=== PATIENT | male | born 1955 | race Caucasian/White ===

== ENCOUNTER 2022-01-06 19:58 | Inpatient (IN) | payer MEDICARE, OTHER ==
[~2022-01-06] VITALS: Ht 170.2 cm; Wt 72.6 kg
[2022-01-06] MEDS ORDERED: NITROGLYCERIN PACKET 1 GM PACKET ONE (20:15)
[2022-01-06] MEDS ORDERED: NITROGLYCERIN PACKET 1 GM PACKET TD ONE (20:30)
[2022-01-06] MEDS ORDERED: ASPIRIN 325 MG TABLET PO ONE (20:30)
[2022-01-06 20:49] LABS: BASOPHILS # (AUTO) 0.1 K/uL (0.0-0.2); BASOPHILS % (AUTO) 0.9 % (0.0-2.0); HEMATOCRIT 41 % (39-51); LYMPHOCYTES # (AUTO) 1.8 K/uL (0.8-4.8); MEAN CORPUSCULAR HGB CONC 34 g/dl (31.0-36.0); MEAN CORPUSCULAR VOLUME 86 fL (80-96); MONOCYTES # (AUTO) 0.4 K/uL (0.1-1.30); MONOCYTES % (AUTO) 5.4 % (2.0-12.0); NEUTROPHILS # (AUTO) 4.5 K/uL (1.8-8.9); NEUTROPHILS % (AUTO) 63.7 % (43.0-81.0); PLATELET COUNT (AUTO) 276 K/uL (150-450); RED BLOOD CELL COUNT(AUTO) 4.74 MIL/uL (4.5-6.0); WHITE BLOOD COUNT (AUTO) 7.1 K/uL (4.3-11.0)
[2022-01-06 21:04] LABS: ALANINE AMINOTRANSFERASE 22 U/L (12-78); ALBUMIN 3.5 g/dL (3.4-5.0); ALKALINE PHOSPHATASE 65 U/L (46-116); ASPARTATE AMINOTRANSFERASE 13 U/L (15-37); BILIRUBIN,DIRECT 0.1 mg/dL (0.0-0.2); BILIRUBIN,TOTAL 0.4 mg/dL (0.2-1.0); CALCIUM, SERUM 8.5 mg/dL (8.5-10.1); CARBON DIOXIDE 28 mmol/L (21-32); CHLORIDE 101 mmol/L (98-107); CREATININE 1.1 mg/dL (0.6-1.3); GLUCOSE 216 mg/dL (74-106); POTASSIUM 3.3 mmol/L (3.5-5.1); SODIUM SERUM 137 mmol/L (136-145); UREA NITROGEN, BLOOD 16 mg/dL (7-18)
[2022-01-06] MEDS ORDERED: ACETAMINOPHEN 325 MG TABLET PO PRN (22:00)
[2022-01-06] MEDS ORDERED: ONDANSETRON HCL/PF 4 MG/2 ML VIAL IVP PRN (22:00)
[2022-01-06] MEDS ORDERED: MAGNESIUM HYDROXIDE 30 ML UDC PO PRN (22:00)
[2022-01-06] MEDS ORDERED: MAG HYDROX/AL HYDROX/SIMETH 30 ML UDC PO PRN ×2 (22:00)
[2022-01-06] MEDS ORDERED: POTASSIUM CHLORIDE 20 MEQ TAB.PRT.SR PO ONE (22:00)
[2022-01-06] MEDS ORDERED: MAG HYDROX/AL HYDROX/SIMETH 30 ML UDC ONE (22:00)
[2022-01-06] MEDS ORDERED: Z GUARD REMEDY 4 OZ OINT TP PRN (22:00)
[2022-01-06] MEDS ORDERED: ZOLPIDEM TARTRATE 5 MG TABLET PO PRN (22:00)
[2022-01-07] VITALS: BP 105/63
[2022-01-07] MEDS ORDERED: CEFTRIAXONE 1 G in IV D5W 50 ML IV SCH ×2
[2022-01-07 00:03] VITALS: BP 105/63
[2022-01-07] MEDS ORDERED: CEFTRIAXONE 1 G VIAL ONE (00:21)
[2022-01-07 04:00] VITALS: BP 98/64
[2022-01-07] MEDS ORDERED: OLME20TA23 PO (06:18)
[2022-01-07] MEDS ORDERED: HYDR12.55 PO (06:18)
[2022-01-07 06:47] LABS: BASOPHILS # (AUTO) 0.1 K/uL (0.0-0.2); BASOPHILS % (AUTO) 0.8 % (0.0-2.0); EOSINOPHILS % (AUTO) 4.4 % (0.0-6.0); HEMATOCRIT 38 % (39-51); LYMPHOCYTES % (AUTO) 27.3 % (20.0-44.0); MEAN CORPUSCULAR HGB CONC 34 g/dl (31.0-36.0); MEAN CORPUSCULAR VOLUME 86 fL (80-96); MONOCYTES # (AUTO) 0.5 K/uL (0.1-1.30); MONOCYTES % (AUTO) 6.6 % (2.0-12.0); NEUTROPHILS # (AUTO) 4.5 K/uL (1.8-8.9); NEUTROPHILS % (AUTO) 60.9 % (43.0-81.0); PLATELET COUNT (AUTO) 256 K/uL (150-450); RED BLOOD CELL COUNT(AUTO) 4.45 MIL/uL (4.5-6.0); WHITE BLOOD COUNT (AUTO) 7.4 K/uL (4.3-11.0)
[2022-01-07 06:50] LABS: CALCIUM, SERUM 8.6 mg/dL (8.5-10.1); CREATININE 1.1 mg/dL (0.6-1.3); MAGNESIUM 2.2 mg/dL (1.8-2.4); PHOSPHORUS 3.3 mg/dL (2.5-4.9); POTASSIUM 3.9 mmol/L (3.5-5.1)
[2022-01-07] MEDS ORDERED: ASPIRIN 81 MG TAB.CHEW PO SCH (09:00)
[2022-01-07 09:51] LABS: THYROID STIMULATING HORMONE 2.579 uIU/mL (0.358-3.74)
[2022-01-10] MEDS ORDERED: HEPARIN INFUSION/D5W 500 ML IV ONE (19:51)
[2022-01-10] MEDS ORDERED: HEPARIN SODIUM, PORCINE 5000 UNITS/1 ML VIAL ONE (20:15)
[2022-01-10] MEDS ORDERED: NITROGLYCERIN PACKET 1 GM PACKET ONE (20:42)
[2022-01-11] MEDS ORDERED: NITR0.4T48 SL (10:57)
== END 2022-01-07 12:20 | disposition left against medical advice (07) | DRG 194 ==
LOC: ER 20:05 → TELE 21:20
PROVIDERS: ADMIT Nurse Practitioner Acute Care; ATTEND Nurse Practitioner Acute Care
DX: J15.9 Unspecified bacterial pneumonia (principal); J81.1 Chronic pulmonary edema; I10 Essential (primary) hypertension; E87.6 Hypokalemia; Z20.822 Contact with and (suspected) exposure to COVID-19; Z53.29 Procedure and treatment not carried out because of patient's decision for other reasons; F17.210 Nicotine dependence, cigarettes, uncomplicated; E11.65 Type 2 diabetes mellitus with hyperglycemia; E78.5 Hyperlipidemia, unspecified; Z79.899 Other long term (current) drug therapy; H05.20 Unspecified exophthalmos
CPT/HCPCS: 36415; 71045-TC; 80048-TC; 80061-TC; 80076-TC; 82728-TC; 83540-TC; 83735-TC; 83880; 84100-TC; 84439-TC; 84443-TC; 84484-TC; 85025-TC; 85378-TC; 86140-TC; 87081-TC; 93307-TC; C9803; G0378; J0696; J7050; J7060

== ENCOUNTER 2022-01-10 15:12 | Inpatient (IN) | payer MEDICARE, OTHER ==
[~2022-01-10] VITALS: Ht 170.2 cm; Wt 73.5 kg
[~2022-01-10 15:12] MED LIST: HYDR12.55 PO; OLME20TA23 PO
--- NOTE | 2022-01-10 15:20 | NUR ---
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 PLACED ON BED, AAOX4, NO PAIN AT MOMMENT.
[2022-01-10] MEDS ORDERED: LOSA50TA39 PO (15:34)
--- NOTE | 2022-01-10 15:45 | NUR ---
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
[2022-01-10 15:56] LABS: BASOPHILS # (AUTO) 0.1 K/uL (0.0-0.2); BASOPHILS % (AUTO) 0.8 % (0.0-2.0); EOSINOPHILS % (AUTO) 3.6 % (0.0-6.0); HEMATOCRIT 40 % (39-51); HEMOGLOBIN 13.9 g/dL (13.5-17.5); LYMPHOCYTES # (AUTO) 1.8 K/uL (0.8-4.8); LYMPHOCYTES % (AUTO) 24.3 % (20.0-44.0); MEAN CORPUSCULAR HGB CONC 34 g/dl (31.0-36.0); MEAN CORPUSCULAR VOLUME 86 fL (80-96); MONOCYTES # (AUTO) 0.5 K/uL (0.1-1.30); MONOCYTES % (AUTO) 6.2 % (2.0-12.0); NEUTROPHILS # (AUTO) 4.9 K/uL (1.8-8.9); NEUTROPHILS % (AUTO) 65.1 % (43.0-81.0); PLATELET COUNT (AUTO) 272 K/uL (150-450); RED BLOOD CELL COUNT(AUTO) 4.71 MIL/uL (4.5-6.0); WHITE BLOOD COUNT (AUTO) 7.5 K/uL (4.3-11.0)
[2022-01-10 16:12] LABS: CALCIUM, SERUM 8.8 mg/dL (8.5-10.1); CARBON DIOXIDE 25 mmol/L (21-32); CHLORIDE 101 mmol/L (98-107); CREATININE 1.1 mg/dL (0.6-1.3); GLUCOSE 113 mg/dL (74-106); POTASSIUM 3.5 mmol/L (3.5-5.1); SODIUM SERUM 136 mmol/L (136-145); UREA NITROGEN, BLOOD 16 mg/dL (7-18)
--- NOTE | 2022-01-10 16:37 | NUR ---
SWAB FOR COVID19 SENT TO LAB
[2022-01-10] MEDS ORDERED: HEPARIN INFUSION/D5W 500 ML IV ONE (17:00)
[2022-01-10] MEDS ORDERED: HEPARIN INFUSION/D5W 500 ML IV PRN (17:30)
[2022-01-10] MEDS ORDERED: HEPARIN SODIUM, PORCINE 5000 UNITS/1 ML VIAL ONE (18:02)
[2022-01-10] MEDS ORDERED: HEPARIN SODIUM, PORCINE 5000 UNITS/1 ML VIAL IV ONE (18:30)
[2022-01-10] MEDS ORDERED: ONDANSETRON HCL/PF 4 MG/2 ML VIAL IVP PRN (19:00)
[2022-01-10] MEDS ORDERED: MAG HYDROX/AL HYDROX/SIMETH 30 ML UDC PO PRN (19:00)
[2022-01-10] MEDS ORDERED: ZOLPIDEM TARTRATE 5 MG TABLET PO PRN (19:00)
[2022-01-10] MEDS ORDERED: MORPHINE SULFATE INJ 2 MG/ML DISP.SYRIN IV PRN (19:00)
[2022-01-10] MEDS ORDERED: MAGNESIUM HYDROXIDE 30 ML UDC PO PRN (19:00)
[2022-01-10] MEDS ORDERED: ACETAMINOPHEN 325 MG TABLET PO PRN (19:00)
[2022-01-10] MEDS ORDERED: Z GUARD REMEDY 4 OZ OINT TP PRN (19:00)
--- NOTE | 2022-01-10 20:09 | NUR ---
[facility] SWAB COLLECTED AND SENT TO LAB. PATIENT'S BELONGINGS LIST DONE.
--- NOTE | 2022-01-10 20:25 | NUR ---
INITIATED HEPARIN DRIP AT 1100 UNITS/ HR : 22ML/HR. VERIFIED BY TWO RNS AND DOSE VERIFIED BY PHARMACY
[2022-01-10] MEDS ORDERED: NITROGLYCERIN PACKET 1 GM PACKET TOP ONE (21:00)
[2022-01-10 21:30] VITALS: BP 137/75
--- NOTE | 2022-01-10 21:40 | NUR ---
sr risk management consultant notes Received Pt from VEENA Mcmahan. Pt is alert and orientedX4. Pt is able to ambulates with a steady gait. On room air. No SOB. No S/S of distress noted. IV site at RAC# 20 is clean, intact and SL. LAC# 20 is clean, intact and infusing well heparin @ 1100 U/hr (22ml/hr). No S/S of bleeding noted. Tele monitor showed SR hr at 89. Patriot Pt to the room and the use of call light. Pt verbalized understanding. Pt's belonging checked by LUIS Son and signed by Pt. Skin assessment is done and performed. Pt's skin is intact. Safety precautions is maintained. Bed at low position, brakes locked, side rails upX2, hob elevated and call light within reach. Will continue to monitor.
--- NOTE | 2022-01-10 21:43 | NUR ---
PT TRANSPORTED TO ROOM 311-1 VIA GURNEY ON PARTS REMOVER PER ACLS PROTOCOL IN STABLE CONDITION
--- NOTE | 2022-01-10 21:53 | NUR ---
RN notes Received a critical lab from aldo Godfrey. Pt's troponin is 126. Pt is on heparin drip. Notified and informed Dr. Martinez. ordered to continue heparin drip. Order carried out.
[2022-01-11] VITALS: BP 116/77
--- NOTE | 2022-01-11 00:37 | NUR ---
RN notes Pt refused BP med metoprolol. Explained risks and benefits. Pt stated "No!". Will continue to monitor.
--- NOTE | 2022-01-11 03:28 | NUR ---
RN notes Called [facility] to asked Pt's PTT. [facility]dan informed that the system was down. Still waiting for the result.
[2022-01-11 04:00] VITALS: BP 105/60
[2022-01-11] MEDS: METOPROLOL TARTRATE 50 MG TABLET PO SCH ×2 (05:50)
--- NOTE | 2022-01-11 05:51 | NUR ---
RN notes Held am BP meds. BP 105/60 HR 75. Will continue to monitor.
--- NOTE | 2022-01-11 06:40 | NUR ---
RN closing notes Pt is resting in bed comfortably. Pt is alert and orientedX4. On room air. No SOB. No S/S of distress noted. IV site at RAC# 20 is clean, intact and SL. LAC# 20 is clean, intact and infusing well heparin @ 1100 U/hr (22ml/hr). VS is stable. No S/S of bleeding noted. Tele monitor showed SR hr at 71. Kept Pt clean, dry and comfortable. Safety precautions is maintained. Bed at low position, brakes locked, side rails upX2, hob elevated and call light within reach. Will endorse to am nurse for JASON.
[2022-01-11 07:21] LABS: BASOPHILS % (AUTO) 0.6 % (0.0-2.0); HEMATOCRIT 38 % (39-51); HEMOGLOBIN 12.8 g/dL (13.5-17.5); LYMPHOCYTES # (AUTO) 2.5 K/uL (0.8-4.8); LYMPHOCYTES % (AUTO) 34.3 % (20.0-44.0); MEAN CORPUSCULAR HGB CONC 34 g/dl (31.0-36.0); MEAN CORPUSCULAR VOLUME 86 fL (80-96); MONOCYTES # (AUTO) 0.4 K/uL (0.1-1.30); MONOCYTES % (AUTO) 5.8 % (2.0-12.0); NEUTROPHILS % (AUTO) 54.3 % (43.0-81.0); PLATELET COUNT (AUTO) 250 K/uL (150-450); RED BLOOD CELL COUNT(AUTO) 4.41 MIL/uL (4.5-6.0); WHITE BLOOD COUNT (AUTO) 7.4 K/uL (4.3-11.0)
[2022-01-11 07:26] LABS: ALBUMIN 3.1 g/dL (3.4-5.0); BILIRUBIN,TOTAL 0.4 mg/dL (0.2-1.0); CALCIUM, SERUM 8.1 mg/dL (8.5-10.1); CREATININE 1.1 mg/dL (0.6-1.3); MAGNESIUM 2.1 mg/dL (1.8-2.4); PHOSPHORUS 3.9 mg/dL (2.5-4.9); POTASSIUM 3.6 mmol/L (3.5-5.1); TOTAL PROTEIN, SERUM 6.4 g/dL (6.4-8.2)
[2022-01-11] MEDS ORDERED: PANTOPRAZOLE 40 MG TABLET.DR PO SCH (07:30)
[2022-01-11 08:00] VITALS: BP 113/76
--- NOTE | 2022-01-11 08:00 | NUR ---
received pt. in am,alert and oriented x4,heparin drip infusing at 1100 u/hr.vs stable.
--- NOTE | 2022-01-11 08:58 | NUR ---
no change in haparin drip per ptt.
[2022-01-11] MEDS ORDERED: ASPIRIN 81 MG TAB.CHEW PO SCH (09:00)
[2022-01-11] MEDS ORDERED: LOSARTAN POTASSIUM 50 MG TABLET PO SCH (09:00)
[2022-01-11] MEDS ORDERED: ATORVASTATIN 40 MG TABLET PO SCH (09:00)
[2022-01-11] MEDS ORDERED: HEPARIN INFUSION/D5W 500 ML IV PRN ×3 (09:30→10:00)
--- NOTE | 2022-01-11 09:45 | NUR ---
dr. pham and in aware pt. wants to sign out ama,advised by both heidi. against this.
[2022-01-11 10:07] VITALS: BP 122/76
[2022-01-11] MEDS ORDERED: NITR0.4T48 SL (10:57)
--- NOTE | 2022-01-11 11:00 | NUR ---
dr. barclay in as pt. requesting ntg rx. spoke to pt. at length.rxs given to pt. including rx for ntg.dr. barclay advised pt. to go to [facility] tomorrow for heart cath.pt. agreeable.all info given to pt.regarding risks of leaving hosp.pt. still wants to leave.
--- NOTE | 2022-01-11 11:30 | NUR ---
heparin dc'd and hep locks removed.
--- NOTE | 2022-01-11 12:01 | NUR ---
all papers signed including belonging sheet.escorted downstairs by rn.son waiting to take pt. home.
== END 2022-01-11 12:10 | disposition left against medical advice (07) | DRG 282 ==
LOC: ER 15:15 → TELE 21:00
PROVIDERS: ADMIT Student in an Organized Health Care Education/Training Program; ATTEND Internal Medicine
DX: I21.4 Non-ST elevation (NSTEMI) myocardial infarction (principal); I10 Essential (primary) hypertension; I35.0 Nonrheumatic aortic (valve) stenosis; E11.9 Type 2 diabetes mellitus without complications; Z82.49 Family history of ischemic heart disease and other diseases of the circulatory system; Z86.711 Personal history of pulmonary embolism; Z79.899 Other long term (current) drug therapy; F17.200 Nicotine dependence, unspecified, uncomplicated
CPT/HCPCS: 36415; 71045-TC; 80048-TC; 80053-TC; 83735-TC; 83880; 84100-TC; 84484-TC; 85025-TC; 85610-TC; 85730-TC; 87081-TC; C9803; G0378; J1644